=== PATIENT | female | born 2000 | race Caucasian/White ===

== ENCOUNTER 2020-07-24 20:10 | Observation (INO) ==
[2020-07-24 20:49] LABS: Basophils # (auto) 0.03 K/uL (0-0.2); Basophils % (auto) 0.3 %; Eosinophils # (auto) 0.21 K/uL (0-0.5); Eosinophils % (auto) 1.9 %; Hematocrit (blood only) 35.8 % (37-47); Hemoglobin 12.3 g/dL (12.0-16.0); Immature Granulocytes # (auto) 0.02 K/uL (0.00-0.02); Immature Granulocytes % (auto) 0.2 %; Lymphocytes # (auto) 3.24 K/uL (1.2-3.4); Lymphocytes % (auto) 28.6 %; Mean Corpuscular Hemoglobin 30.1 pg (25-34); Mean Corpuscular Hgb Conc 34.4 g/dL (32-36); Mean Corpuscular Volume 87.5 fL (80-100); Mean Platelet Volume 10.1 fL (7.4-10.4); Monocytes # (auto) 0.85 K/uL (0.11-0.59); Monocytes % (auto) 7.5 %; Neutrophils # (auto) 6.97 K/uL (1.4-6.5); Neutrophils % (auto) 61.5 %; Platelet Count 334 K/uL (130-400); RDW Coefficient of Variation 12.6 % (11.5-14.5); RDW Standard Deviation 40.6 fL (36.4-46.3); Red Blood Count 4.09 M/uL (4.2-5.4); White Blood Count 11.32 K/uL (4.8-10.8)
--- NOTE | 2020-07-24 20:52 | Emergency Department Note ---
History of Present Illness General Chief complaint: Abdominal Pain Stated complaint: LOWER RIGHT ABD PAIN Time Seen by Provider: 07/24/20 20:36 Source: patient History of Present Illness Provider complaint: Right lower quadrant abdominal pain Onset (ago): hour(s) Location: abdomen and right Radiation: non-radiation Pain Consistency: + constant Maximum Pain Intensity: 8 Quality: + sharp Exacerbated By: + movement Associated symptoms: no chest pain, no cough, no fever/chills, no nausea/vomiting and no shortness of breath This is a 20-year-old female who presents with right lower quadrant pain starting approximately 9 AM this morning. It was mild at the time but has progressively gotten worse. She describes it as sharp. She rates it at an 8 out of 10 in severity. It is worse when she moves around. No associated fever, vomiting, chest pain, shortness of breath, cough or cold symptoms, abdominal pain, dysuria, diarrhea, constipation or abnormal vaginal discharge or bleeding. She does state that she had a Covid test 2 days ago through the [facility] which was negative. Home Medications Medication Instructions Recorded Confirmed Type aspirin [Aspirin Low-Strength] 81 mg PO DAILY 07/24/20 07/24/20 History sertraline [Zoloft] 25 mg PO DAILY 07/24/20 07/24/20 History sertraline [Zoloft] 100 mg PO DAILY 07/24/20 07/24/20 History spironolactone 50 mg PO DAILY 07/24/20 07/24/20 History trazodone 25 mg PO DAILY 07/24/20 07/24/20 History Allergies Allergy/AdvReac Type Severity Reaction Status Date / Time No Known Allergies Allergy Unverified 07/24/20 20:44 Past Med/Surg History Medical History No pertinent past medical history Surgical History [place] teeth extracted Social History Smoking Status: Never smoker Preferred Language: Ukrainian Feels Safe at Home: Yes Review of Systems See HPI for pertinent positives & negatives. and A total of 10 systems reviewed and were otherwise negative Physical Exam Vital Signs Vital Signs - 24 hr 07/24/20 20:12 07/24/20 22:25 07/24/20 22:46 Temperature 36.4 C L Temperature Source Temporal Artery Scan Pulse Rate 71 Pulse Rate [Left Finger] 94 H 78 Pulse Rhythm [Left Finger] Regular Pulse Strength [Left Finger] Normal Respiratory Rate 16 16 18 Respiratory Effort / Characteristics Non-Labored Respiratory Depth Normal Normal Blood Pressure 126/80 Blood Pressure [Right Arm] 120/80 141/98 H Blood Pressure Mean 95 Blood Pressure Mean [Right Arm] 93 112 Blood Pressure Position [Right Arm] Lying Pulse Oximetry 99 100 98 Oxygen Delivery Method Room Air Room Air Room Air Sepsis New/Unexplained Change in Mental Status N/A Sepsis Action Taken by Nursing No Action Required Constitutional: Vital signs reviewed. Eyes: Pupils are equal round reactive to light. Conjunctiva are noninjected. ENT: Pharynx is clear without erythema or exudate. Mucous membranes are moist. Neck supple without meningeal signs. Respiratory: Clear to auscultation bilaterally. Breath sounds are equal bilaterally. Cardiovascular: Regular rate and rhythm. No rubs or gallops. GI: Soft, nondistended with tenderness in the right lower quadrant. No involuntary guarding. Bowel sounds are present. Musculoskeletal: No peripheral edema. No CVA tenderness. Integumentary: No cyanosis. or jaundice. Neurological: The patient is awake and alert. No focal deficits. Psychiatric: Normal affect. Not anxious appearing. Course Administered Medications Cefoxitin Sodium (Mefoxin) 2,000 mg in 60 mls @ 100 mls/hr IV NOW STA Stop: 07/24/20 22:59 Last Admin: 07/24/20 22:45 Dose: 100 mls/hr Documented by: [id number] Discontinued Medications Ioversol (Ioversol 100ml) 88 ml IV ONCE ONE Stop: 07/24/20 21:28 Last Admin: 07/24/20 21:27 Dose: 88 ml Documented by: [id number] Morphine Sulfate (Morphine Sulfate 4 Mg/Ml 1 Ml Carp\Vial) 4 mg IV NOW STA Stop: 07/24/20 22:11 Last Admin: 07/24/20 22:24 Dose: 4 mg Documented by: [id number] Ondansetron HCl (Ondansetron Inj 2 Mg/Ml 2 Ml Vial) 4 mg IV NOW STA Stop: 07/24/20 22:11 Last Admin: 07/24/20 22:17 Dose: 4 mg Documented by: [id number] Admin: 07/24/20 22:17 Dose: 4 mg Documented by: [id number] Medical Decision Making Differential Diagnosis Acute appendicitis, abscess, perforation, ovarian cyst, ectopic , IBS Medical Records Attestation: I reviewed the patient's medical records. I did perform a limited focused review of portions of the patient's old chart on the electronic medical record. The patient has had no recent pertinent visits to this hospital. Home Medications Current Medication List: was personally reviewed by me Laboratory Data Attestation: I reviewed the patient's lab results. Result diagrams: 07/24/20 20:25 07/24/20 20:25 Lab Results 07/24/20 07/24/20 07/24/20 Range/Units 20:25 20:25 20:25 WBC 11.32 H (4.8-10.8) K/uL RBC 4.09 L (4.2-5.4) M/uL Hgb 12.3 (12.0-16.0) g/dL Hct 35.8 L (37-47) % MCV 87.5 (80-100) fL MCH 30.1 (25-34) pg MCHC 34.4 (32-36) g/dL RDW Std Deviation 40.6 (36.4-46.3) fL RDW Coeff of Kassi 12.6 (11.5-14.5) % Plt Count 334 (130-400) K/uL MPV 10.1 (7.4-10.4) fL Immature Gran % (Auto) 0.2 % Neut % (Auto) 61.5 % Lymph % (Auto) 28.6 % [place] % (Auto) 7.5 % Eos % (Auto) 1.9 % Baso % (Auto) 0.3 % Neut # (Auto) 6.97 H (1.4-6.5) K/uL Lymph # (Auto) 3.24 (1.2-3.4) K/uL [place] # (Auto) 0.85 H (0.11-0.59) K/uL Eos # (Auto) 0.21 (0-0.5) K/uL Baso # (Auto) 0.03 (0-0.2) K/uL Immature Gran # (Auto) 0.02 (0.00-0.02) K/uL Sodium Cancelled 139 Potassium Cancelled 3.6 Chloride Cancelled 107 Carbon Dioxide Cancelled 28 Anion Gap Cancelled 4.0 BUN Cancelled 16 Creatinine Cancelled 0.75 Est Cr Clr Drug Dosing Cancelled 109.6 Est GFR ( Amer) Cancelled 133.0 Est GFR (Non-Af Amer) Cancelled 114.7 BUN/Creatinine Ratio Cancelled 20.8 H Glucose Cancelled 85 Calcium Cancelled 8.8 Total Bilirubin Cancelled 0.5 AST Cancelled 12 L ALT Cancelled 25 Alkaline Phosphatase Cancelled 48 Total Protein Cancelled 8.0 Albumin Cancelled 4.0 Globulin Cancelled 4.0 Albumin/Globulin Ratio Cancelled 1.0 Lipase 106 (73-393) U/L Urine Color Urine Appearance (Clear) Urine pH (4.5-7.5) Ur Specific [place] (1.000-1.030) Urine Protein (Negative) Urine Glucose (UA) (Negative) Urine Ketones (Negative) Urine Blood (Negative) Urine Nitrite (Negative) Urine Bilirubin (Negative) Urine Urobilinogen (Negative) Ur Leukocyte Esterase (Negative) Urine WBC (Auto) (0-5) /hpf Urine RBC (Auto) (0-4) /hpf U Hyaline Cast (Auto) (0-5) /lpf U Epithel Cells (Auto) (0-5) /lpf Urine Bacteria (Auto) (Negative) POC Ur Test (NEG) COVID-19 Eval Order 07/24/20 07/24/20 07/24/20 Range/Units 20:25 20:25 22:28 WBC (4.8-10.8) K/uL RBC (4.2-5.4) M/uL Hgb (12.0-16.0) g/dL Hct (37-47) % MCV (80-100) fL MCH (25-34) pg MCHC (32-36) g/dL RDW Std Deviation (36.4-46.3) fL RDW Coeff of Kassi (11.5-14.5) % Plt Count (130-400) K/uL MPV (7.4-10.4) fL Immature Gran % (Auto) % Neut % (Auto) % Lymph % (Auto) % [place] % (Auto) % Eos % (Auto) % Baso % (Auto) % Neut # (Auto) (1.4-6.5) K/uL Lymph # (Auto) (1.2-3.4) K/uL [place] # (Auto) (0.11-0.59) K/uL Eos # (Auto) (0-0.5) K/uL Baso # (Auto) (0-0.2) K/uL Immature Gran # (Auto) (0.00-0.02) K/uL Sodium Potassium Chloride Carbon Dioxide Anion Gap BUN Creatinine Est Cr Clr Drug Dosing Est GFR ( Amer) Est GFR (Non-Af Amer) BUN/Creatinine Ratio Glucose Calcium Total Bilirubin AST ALT Alkaline Phosphatase Total Protein Albumin Globulin Albumin/Globulin Ratio Lipase (73-393) U/L Urine Color Yellow Urine Appearance Cloudy A (Clear) Urine pH 7.5 (4.5-7.5) Ur Specific [place] 1.018 (1.000-1.030) Urine Protein Negative (Negative) Urine Glucose (UA) Negative (Negative) Urine Ketones Negative (Negative) Urine Blood 2+ H (Negative) Urine Nitrite Negative (Negative) Urine Bilirubin Negative (Negative) Urine Urobilinogen Negative (Negative) Ur Leukocyte Esterase Negative (Negative) Urine WBC (Auto) 0 (0-5) /hpf Urine RBC (Auto) 10-30 H (0-4) /hpf U Hyaline Cast (Auto) 0 (0-5) /lpf U Epithel Cells (Auto) 5-10 H (0-5) /lpf Urine Bacteria (Auto) Negative (Negative) POC Ur Test NEG (NEG) COVID-19 Eval Order [facility] at [facility] Imaging Data Radiologist's Impression: Preliminary Findings Only See Final Report For Complete Findings CT ABDOMEN & PELVIS With Contrast: Appendix not clearly visualized. Obscured by the right ovary and multiple bowel loops within the right lower quadrant. There is trace fat stranding along the inferior aspect of the cecum (image [id number]). Potentially related to physiologic free fluid however cannot exclude early appendicitis. No fluid collection or free air. Unremarkable appearance of the ovaries. A properly positioned IUD. No renal or ureteral stone. Liver, gallbladder, pancreas, and spleen are unremarkable. Radiologist: Ga Salter MD Study ready at 21:43 and initial results transmitted at 22:12 MDM Narrative I did evaluate the patient as noted above. The patient is presenting with right lower quadrant pain. She is tender in the right lower quadrant. I am concerned about acute appendicitis. She was made NPO. She declined any pain or nausea medications. IV access was established. I did order a urine analysis. She has no evidence of infection. There is hematuria but she is currently on her period. I did order and review the patient's blood work as noted in the electronic medical record. Her white blood cell count is slightly elevated at 1.3. Hemoglobin is 12.3 and platelets are within normal limits. Electrolytes and LFTs and lipase are all within normal limits. I did order a CT of the abdomen and pelvis. I did review the images myself as well as the radiology report as described above. The appendix was not clearly visualized. Obscured by the right ovary and multiple bowel loops. There is trace fat stranding along the inferior aspect of the cecum. Potentially related to physiologic free fluid however cannot exclude early appendicitis. No fluid collections or free air. Unremarkable appearance of the ovaries with a properly positioned IUD. I did discuss case with Dr. Li of surgery. He did assess the patient here in the emergency department. He did take the patient to the operating room for appendectomy. I did discuss the results with the patient and she was given morphine and Zofran IV for pain as her pain has now gotten worse. I did order a Covid test. Impression & Plan Appendicitis Discharge Plan Visit Data Chief Complaint: Abdominal Pain Stated Complaint: LOWER RIGHT ABD PAIN ED Provider: Win Navarro Discharge Problem: Appendicitis Patient Disposition: Being Evaluated by Surgeon Forms Stand Alone Forms: [facility] Prescriptions Prescriptions: No Action trazodone 50 mg Tablet 25 mg PO DAILY RF: 0 sertraline [Zoloft] 100 mg Tablet 100 mg PO DAILY RF: 0 aspirin [Aspirin Low-Strength] 81 mg Tablet,Delayed Release (Dr/Ec) 81 mg PO DAILY RF: 0 sertraline [Zoloft] 25 mg Tablet 25 mg PO DAILY RF: 0 spironolactone 50 mg Tablet 50 mg PO DAILY RF: 0 Referrals Referrals: [facility] [Primary Care Provider] -
[2020-07-24 20:57] LABS: Appearance Urine Cloudy (Clear); Bacteria Urine Automated Negative (Negative); Bilirubin Urine Negative (Negative); Blood Urine 2+ (Negative); Cast Urine Automated 0 /lpf (0-5); Color Urine Yellow; Glucose Urine UA Negative (Negative); Ketones Urine Negative (Negative); Leukocyte Esterase Urine Negative (Negative); Nitrite Urine Negative (Negative); Protein Urine Negative (Negative); Specific Gravity Urine 1.018 (1.000-1.030); Urobilinogen Urine Negative (Negative); WBC Urine Automated 0 /hpf (0-5); pH Urine 7.5 (4.5-7.5)
[2020-07-24 21:05] LABS: BUN Creatinine Ratio 20.8 (10-20); Calcium 8.8 mg/dl (8.5-10.1); Creatinine Clr Calc Pharmacy 109.6 ml/min; Est GFR (Non-African American) 114.7; Potassium 3.6 mmol/L (3.5-5.1)
[2020-07-24 21:08] LABS: Bilirubin,Total 0.5 mg/dl (0.2-1)
[2020-07-24] MEDS ORDERED: OPTIRAY 320 100ml IV ONE (21:27)
[2020-07-24] MEDS ORDERED: MoRPHine SULFATE 4 MG/ML 1 ML CARP\\VIAL IV STA (22:10)
[2020-07-24] MEDS: ONDANSETRON INJ 2 MG/ML 2 ML VIAL IV STA (22:17)
[2020-07-24] MEDS ORDERED: cefOXitin 2,000 MG/60 ML BAG IV STA (22:24)
[2020-07-24] MEDS ORDERED: LIDOCAINE/EPINEPHRINE 1% 20 ML VIAL ONE (22:30)
--- NOTE | 2020-07-24 22:33 | History & Physical Report ---
Date of Service July 24, 2020 Assessment & Plan (1) Appendicitis: Due to the patient's clinical presentation and CT scan findings Dr. Hester has elected to take the patient to the operating room for an appendectomy. He has discussed the risks, benefits, and alternatives with the patient. A Covid test has been ordered which is pending. We will river rafting guide antibiotics in the form of cefoxitin. Further recommendations be made based on operative findings as well as patient's clinical course. 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 secondary to abdominal pain. Patient notes that she had a fever yesterday and some cramp- like pain located primarily in the right lower quadrant of her abdomen. She did not have any associated nausea or vomiting. She notes that the pain persisted over the past 24 hours and has not improved. Because of this she presented to [facility] emergency department as noted above. She notes that the pain is improved somewhat with pain medicine that has been administered in the emergency department. She does not note any other palliative factors. She notes that the pain does not radiate and she does not note any other provocative factors. Patient does note that she is currently undergoing her menstrual cycle and does not feel that the pain is related to this. In the emergency department the patient did have imaging and labs that were independently reviewed by myself. CBC revealed an elevated white blood cell count 11.32. Her hemoglobin is noted to be 12.3. Her platelet count was noted to be within normal range. Chemistry profile revealed her sodium, potassium, BUN, and creatinine were all within normal range. Urine test was noted to be negative. Patient does note that she had received both of her Covid vaccines. She also reports having a negative Covid test performed by [facility] approximately [address] scan was performed the emergency department. Although the appendix was not clearly visualized as it was obscured by the right ovary and multiple loops of bowel trace fat stranding was noted along the inferior aspect of the cecum which is felt to potentially be related to an acute appendicitis. At time of my interview the patient was resting comfortably bed she was in no distress. Allergies Allergy/AdvReac Type Severity Reaction Status Date / Time No Known Allergies Allergy Unverified 07/24/20 20:44 Home Medications Medication Instructions Recorded Confirmed Type aspirin [Aspirin Low-Strength] 81 mg PO DAILY 07/24/20 07/24/20 History sertraline [Zoloft] 25 mg PO DAILY 07/24/20 07/24/20 History sertraline [Zoloft] 100 mg PO DAILY 07/24/20 07/24/20 History spironolactone 50 mg PO DAILY 07/24/20 07/24/20 History trazodone 25 mg PO DAILY 07/24/20 07/24/20 History Past Med/Surg History Medical History No pertinent past medical history Surgical History [place] teeth extracted Social History Smoking Status: Never smoker Preferred Language: Dutch Feels Safe at Home: Yes Review of Systems Constitutional: + fever Eyes: no eye pain Ear, Nose, Mouth, Throat: no ear pain Respiratory: no cough and no dyspnea Cardiovascular: no chest pain Gastrointestinal: + abdominal pain; no nausea and no vomiting Genitourinary: no dysuria Musculoskeletal: no back pain Integumentary: no rash Neurologic: no localized weakness Physical Exam Constitutional: well developed and well nourished; no acute distress Eyes: no conjunctival abnormality ENMT: Ears: no hearing impairment Neck: trachea midline Respiratory: normal respiratory effort; no respiratory distress and no labored breathing Cardiovascular: Rate/Rhythm: regular rate and regular rhythm Gastrointestinal (Abdomen): Abdomen is soft and nondistended. Patient had significant tenderness to palpation with both deep and light palpation in the right lower quadrant. She did have some associated rebound tenderness. Musculoskeletal: No calf tenderness Skin: no rashes, warm and dry Neurologic: moves all extremities Psychiatric: A+Ox3, euthymic affect Results & Data Results & Data ([facility]) Vital Signs (Past 12 Hours) Vital Signs Temp Pulse Pulse Resp BP BP Pulse Ox 07/24/20 22:25 94 H 16 120/80 100 07/24/20 20:12 36.4 C L 71 16 126/80 99 Supervising Physician Co-Signing Physician Notes As per Kamaljit Chapa physician resident assistant cna Patient has had approximately 24-hour history periumbilical pain eventually radiated down the right lower quadrant were on exam she has got exquisite tenderness and rebound in that area CAT scan official reading was inconclusive as far as occlusion of the side as it was done with noncontrast stating that some bowel loops cannot see the appendix Clinical exam and history compatible with acute appendicitis include laboratory Recommended patient to undergo a laparoscopic appendectomy possible open risk and complication were explained to the patient was bleeding infection converting to open procedure and she would like to proceed accordingly I also spoke to her mother by phone who was in [place] All question answered permit signed PG Care Time/CCT Total # of Minutes Spent Total Time Spent with Patient: Total time spent is greater than 50% in coordination of care (as documented) at patient's floor/unit and/or counseling patient: Coding Level of Care Code 22339 OBS Care - Level 3 Diagnoses Appendicitis K37
[2020-07-24 23:14] LABS: Influenza A virus by PCR Negative (Neg); Influenza B virus by PCR Negative (Neg); RSV by PCR Negative (Neg); SARS CoV2 RNA(COVID-19) InHosp NEGATIVE (Negative)
[2020-07-24] MEDS ORDERED: HYDROmorphone INJ 2 MG/ML SYR/VIAL IV PRN (23:29)
[2020-07-24] MEDS ORDERED: fentaNYL citrate 100 MCG/2 ML VIAL IV PRN (23:29)
[2020-07-24] MEDS ORDERED: ATROPINE SULFATE 0.1 MG/ML 10ML SYR IV PRN (23:29)
[2020-07-24] MEDS ORDERED: ONDANSETRON INJ 2 MG/ML 2 ML VIAL IV PRN (23:29)
[2020-07-24] MEDS ORDERED: ePHEDrine sulfate 50 MG/ML AMP IV PRN (23:29)
[2020-07-24] MEDS ORDERED: PROMETHAZINE HCL 6.25 MG in SODIUM CHLORIDE 0.9% 50 ML IV PRN (23:29)
--- NOTE | 2020-07-24 23:42 | Anesthesiology Consultation ---
Date of Service July 24, 2020 Assessment & Plan (1) Encounter for pre-operative examination: Chart Review Chart Review: Acceptable Risk for Surgery and Patient NOT seen in Pre Admission Testing Consults Requested none ASA [id number] Proposed Anesthesia Anesthesia Type: General Risk / Benefits Reviewed With: PT / POA / Parent / Guardian, Accepts Plan and Informed Consent Obtained History Surgery Operation Date: 07/24/20 23:00 Proposed Procedures p Laparoscopic Appendectomy - Marcelino Hester MD, FACS Height/Weight Height: 5 ft 3 in Weight: 66.4 kg Allergies Allergy/AdvReac Type Severity Reaction Status Date / Time No Known Allergies Allergy Unverified 07/24/20 20:44 Medications Home Medications Medication Instructions Recorded Confirmed Last Taken aspirin [Aspirin Low-Strength] 81 mg PO DAILY 07/24/20 07/24/20 07/23/20 sertraline [Zoloft] 25 mg PO DAILY 07/24/20 07/24/20 07/23/20 sertraline [Zoloft] 100 mg PO DAILY 07/24/20 07/24/20 07/23/20 spironolactone 50 mg PO DAILY 07/24/20 07/24/20 07/23/20 trazodone 25 mg PO DAILY 07/24/20 07/24/20 07/23/20 NPO Date Last Intake of Fluids: 07/24/20 Time Last Intake of Fluids: 14:40 Date Last Intake of Solids: 07/24/20 Time Last Intake of Solids: 15:00 Past Medical History Medical History No pertinent past medical history Exercise / Class Metabolic Activity II 4-5 Yardwork/Stairs/Walk up hill Past Surgical History Surgical History [place] teeth extracted Past Anesthesia History No Hx of Anesthesia Complications and No Family Hx of Anesthesia Complications History of PONV No Hx of PONV and No Hx of Motion Sickness Social History Smoking Status: Never smoker Physical Exam Vital Signs Last Vital Signs Temp 36.4 C L 07/24/20 20:12 Pulse 78 07/24/20 22:46 Resp 18 07/24/20 22:46 BP 141/98 H 07/24/20 22:46 Pulse Ox 98 07/24/20 22:46 ENMT Mouth: no dentition abnormality Thyromental Distance: > or= 3.5 Finger Breadths Mallampati Class: II Neck normal visual inspection Respiratory normal respiratory effort Auscultation: lungs clear to auscultation bilaterally Cardiovascular Rate/Rhythm: regular rate and regular rhythm Psychiatric Orientation: alert Testing Laboratory Results 07/24/20 20:25 07/24/20 20:25 Urine Color Yellow 07/24/20 20:25 Urine Appearance Cloudy (Clear) A 07/24/20 20:25 Urine pH 7.5 (4.5-7.5) 07/24/20 20:25 Ur Specific [place] 1.018 (1.000-1.030) 07/24/20 20:25 Urine Protein Negative (Negative) 07/24/20 20: Urine Glucose (UA) Negative (Negative) 07/24/20 20: Urine Ketones Negative (Negative) 07/24/20 20:25 Urine Nitrite Negative (Negative) 07/24/20 20:25 Ur Leukocyte Esterase Negative (Negative) 07/24/20 20:25 Urine WBC (Auto) 0 /hpf (0-5) 07/24/20 20:25 Urine RBC (Auto) 10-30 /hpf (0-4) H 07/24/20 20:25 U Hyaline Cast (Auto) 0 /lpf (0-5) 07/24/20 20:25 U Epithel Cells (Auto) 5-10 /lpf (0-5) H 07/24/20 20:25 Urine Bacteria (Auto) Negative (Negative) 07/24/20 20:25 07/24/20 20:25 POC Ur Test NEG
[2020-07-24] MEDS ORDERED: fentaNYL citrate 100 MCG/2 ML VIAL ONE (23:46)
[2020-07-24] MEDS ORDERED: HYDROmorphone INJ 1 MG/ML SYRINGE ONE (23:58)
--- NOTE | 2020-07-25 00:29 | Post Operative Brief Note ---
PG Immediate Post Op with CF Date of Surgery July 25, 2020 Pre & Post Diagnosis Operation Date: 07/24/20 23:00 Pre-Op Diagnosis: Acute Appendicitis Post-Op Diagnosis: Acute Appendicitis I identified the patient and participated in the time-out.: Yes Procedure Operation Date: 07/24/20 23:00 Actual Procedures p Laparoscopic Appendectomy - Marcelino Hseter MD, FACS Surgeon Marcelino Hester MD, FACS Certified Alcohol Counselor b mary ARELLANO Estimated Blood Loss 5 Findings Consistent with Post-Op Diagnosis Specimens Specimen Description: A. Appendix
--- NOTE | 2020-07-25 00:41 | Operative Report ---
PG Post Operative Report Pre & Post Diagnosis Operation Date: 07/24/20 23:00 Pre-Op Diagnosis: Acute Appendicitis Post-Op Diagnosis: Acute Appendicitis I identified the patient and participated in the time-out.: Yes Procedure Operation Date: 07/24/20 23:00 Actual Procedures p Laparoscopic Appendectomy - Marcelino Hester MD, FACS The patient was brought onto the operative room theater supine position general trach anesthesia the abdomen was prepped byline solution properly draped systemic and biotics been given a timeout was had the patient was identified made a small incision supraumbilically sufficient to place a Veress needle followed by CO2 followed by 5 mm trocar point of interest bacteroids identified direct visualization placed a 5 mm right upper quadrant port when initially when looked at the abdomen patient had a very active peristalsis of the small bowel consistent edema in the lateral aspect of the cecum placing a 5 mm right upper quadrant trocar and direct visualization then we were able to elevate the cecum and identify the appendix at its takeoff from the cecum was slightly larger than normal and appeared to be going down towards the pelvic brim at this point I converted the 5 mm supraumbilical port by enlarging the incision dilating the fascial opening using 0 Vicryl suture as a stay suture we placed an 11 mm or 12 mm trocar at this point a 5 mm trocar was placed in the left lower quadrant preemptive local analgesia and direct visualization the camera was placed left lower quadrant using the umbilical and right upper quadrant port we elevated the cecum were able to create a window between the appendix and the mesoappendix was elevated the appendix this time we identified it more did not appear very long slightly larger than normal but there is no fibrinous exudate. The mesoappendix was clipped with 10 mm clips controlled any losing and the appendix was taken off the mesoappendix placed in an Endopouch and taken out intact through local port we irrigated the area copiously there was no bleeding identified in fact the patient had a significant amount of edema at the cecal cap and the lateral wall but the cecum itself did not appear to be inflamed. This point on direct visualization we were able to visualize the trochars making sure there was no bleeding at the camera right upper quadrant port and took out the left lower quadrant trocar than the umbilical port and then last the right upper quad port fascial stitch 0 Vicryl [id number] times 2 and 4-0 Monocryl for the subcu Steri-Strips applied the procedure was tolerated well by the patient estimated blood loss 5 cc addendum Naveed then used one application of the purple MARYBEL freed the appendix at the base of the addendum Kamaljit Cunningham present throughout the case and helped the retraction camera work and wound closure Surgeon Marcelino Hester MD, FACS Micro Photographer flako ARELLANO Estimated Blood Loss 5 Findings Consistent with Post-Op Diagnosis Specimens appendix Description of Procedure merda I attest to the content of the Intraoperative Record and any orders documented therein. Any exceptions are noted below.
[2020-07-25] MEDS ORDERED: DEXAMETHASONE SOD INJ 4 MG/ML VIAL ONE (01:09)
[2020-07-25] MEDS ORDERED: SUCCINYLCHOLINE 100MG/5ML SYR IV ONE (01:09)
[2020-07-25] MEDS ORDERED: NEOSTIGMINE METHYLSULFATE 5 MG/5 ML SYR ONE (01:09)
[2020-07-25] MEDS ORDERED: ONDANSETRON INJ 2 MG/ML 2 ML VIAL ONE ×2 (01:09→01:20)
[2020-07-25] MEDS ORDERED: PROPOFOL IV EMULSION 10 MG/ML 20 ML VIAL IV ONE (01:09)
[2020-07-25] MEDS ORDERED: GLYCOPYRROLATE 0.2 MG/ML VIAL ONE (01:09)
[2020-07-25] MEDS ORDERED: ROCURONIUM BROMIDE 10 MG/ML 5 ML VIAL IV ONE (01:09)
[2020-07-25] MEDS ORDERED: LIDOCAINE HCL 2% 2 ML VIAL/AMP(20MG/ML) INFIL ONE (01:09)
[2020-07-25] MEDS ORDERED: KETOROLAC 30 MG/ML VIAL ONE (01:09)
--- NOTE | 2020-07-25 01:26 | Anesthesiology Progress Note ---
Date of Service July 25, 2020 Anesthesia Post Procedure Vital Signs Vital Signs: Temp Pulse Pulse Resp BP BP Pulse Ox 07/25/20 01:15 36.3 C L 81 15 116/80 94 07/25/20 01:05 36.3 C L 69 15 121/78 96 07/25/20 00:55 36.2 C L 90 18 129/95 100 07/24/20 22:46 78 18 141/98 H 98 07/24/20 22:25 94 H 16 120/80 100 07/24/20 20:12 36.4 C L 71 16 126/80 99 Pain Intensity Right Lower Abdomen: Pain Intensity: 2 Transfer of Care Handoff Completed per policy Notes Mental Status: alert / awake / arousable Patient Amnestic to Procedure: Yes Nausea / Vomiting: adequately controlled Pain: adequately controlled Airway Patency, RR, SpO2: stable & adequate BP & HR: stable & adequate Hydration State: stable & adequate Anesthetic Complications: no major complications apparent
[2020-07-25] MEDS ORDERED: LACTATED RINGER'S 1,000 ML IV SCH (01:54)
[2020-07-25] MEDS ORDERED: ONDANSETRON INJ 2 MG/ML 2 ML VIAL IV PRN (01:54)
[2020-07-25] MEDS ORDERED: MoRPHine SULFATE 2 MG/ML CARP IV PRN (01:54)
[2020-07-25] MEDS: ACETAMINOPHEN 1,000 MG/100 ML VIAL IV SCH ×2 (02:23→09:18)
[2020-07-25] MEDS: oxyCODONE HCL IR 5 MG TAB (IMMEDIATE RELEASE) PO PRN ×2 (04:06→08:46)
--- NOTE | 2020-07-25 08:42 | CT Scan Report ---
ABDOMEN AND PELVIS CT WITH IV CONTRAST CT DOSE: 298.25 mGy.cm HISTORY: Right lower quadrant pain. TECHNIQUE: Multiaxial CT images of the abdomen and pelvis were performed following the use of intrave nous contrast. A dose lowering technique was utilized adhering to the principles of ALARA. COMPARISON STUDY: None. FINDINGS: The lung bases are clear. No pneumoperitoneum. No pneumatosis. No fractures within the visu alized osseous structures. The liver, gallbladder, pancreas, spleen, adrenal glands, and kidneys are unremarkable. No hydronephrosis. The bladder is not well-distended but appears unremarkable. An intra uterine device appears in good position. There is a tampon noted within the vagina. No bowel wall thi ckening or obstruction. The normal appendix is likely visualized within the right lower quadrant on i mages 258 through 263 and is seen adjacent to the right iliac vessels. However, there is inflammatory change at the base of the cecum and adjacent to the right ovary best seen on image 294. This is nons pecific but favors a gynecologic abnormality. An early acute appendicitis is considered less likely b ut not entirely excluded. Consider repeat abdomen and pelvis CT with oral and intravenous contrast if the patient's symptoms progress. IMPRESSION: The normal appendix is likely visualized within the right lower quadrant and is seen adjacent to the right iliac vessels. However, there is inflammatory change at the base of the cecum and adjacent to t he right ovary. This is nonspecific but favors a gynecologic abnormality. An early acute appendicitis is considered less likely but not entirely excluded. Consider repeat abdomen and pelvis CT with oral and intravenous contrast if the patient's symptoms progress. ACT 112: Negative or not required by law. Electronically signed by: Babak Su M.D. 07/25/2020 8:41 AM
[2020-07-25] MEDS ORDERED: SERTRALINE HCL 50 MG TABLET PO SCH (09:00)
[2020-07-25] MEDS ORDERED: SERTRALINE HCL 100 MG TABLET PO SCH (09:00)
[2020-07-25] MEDS ORDERED: ASPIRIN 81 MG ECTAB PO SCH (09:00)
--- NOTE | 2020-07-25 11:09 | Discharge Summary ---
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 Patient notes that she had a fever yesterday and some cramp- like pain located primarily in the right lower quadrant of her abdomen. She did not have any associated nausea or vomiting. She notes that the pain persisted over the past 24 hours and has not improved. Because of this she presented to [facility] emergency department as noted above. She notes that the pain is improved somewhat with pain medicine that has been administered in the emergency department. She does not note any other palliative factors. She notes that the pain does not radiate and she does not note any other provocative factors. Patient does note that she is currently undergoing her menstrual cycle and does not feel that the pain is related to this. In the emergency department the patient did have imaging and labs that were independently reviewed by myself. CBC revealed an elevated white blood cell count 11.32. Her hemoglobin is noted to be 12.3. Her platelet count was noted to be within normal range. Chemistry profile revealed her sodium, potassium, BUN, and creatinine were all within normal range. Urine test was noted to be negative. Patient does note that she had received both of her Covid vaccines. She also reports having a negative Covid test performed by [facility] approximately [address] scan was performed the emergency department. Although the appendix was not clearly visualized as it was obscured by the right ovary and multiple loops of bowel trace fat stranding was noted along the inferior aspect of the cecum which is felt to potentially be related to an acute appendicitis. At time of my interview the patient was resting comfortably bed she was in no distress. Principal Diagnosis Acute appendicitis Discharge Exam Gastrointestinal (Abdomen) Inspection/Auscultation: + abdominal surgical incision (clean, dry); abdomen not distended Percussion/Palpation: abdomen soft Discharge Data Allergies Allergy/AdvReac Type Severity Reaction Status Date / Time No Known Allergies Allergy Unverified 07/24/20 20:44 Consultations 07/24/20 22:25 Consult General Surgery Stat Procedures Performed Operation Date: 07/24/20 23:00 Actual Procedures p Laparoscopic Appendectomy - Marcelino Hester MD, FACS Ordered Studies 07/24/20 20:40 CT abd pelvis IV con only Stat Hospital Course (1) Appendicitis: 20 y/o female presented to the ER with abdominal pain. White count was 11,[address] questioned early acute appendicitis. She was taken to the operating room for laparoscopic appendectomy and transferred to the surgical floor for overnight observation. In the morning she was able to advance diet and tolerate oral analgesics. She was stable for discharge home. Total Time Total Time Spent Total Time Spent (In Minutes): 15 Discharge Plan Discharge Items Patient Disposition: Home - Self-Care Reason For Visit: APPY Discharge Diagnosis: appendicitis Activity: As commented below Lifting: No more than 10 pounds Bathing Comment: ok to shower Driving/Machine Use: Resume 3 days after discharge Non-emergency contact: Surgeon Call non-emergency contact if: you have any medication questions, your pain is not controlled, you have a fever, your temperature is above 101.5, your wound has increased redness and your wound has increased drainage Follow-up/Referrals: Marcelino Hester MD, FACS [Surgeon] - 08/01/20 11:00 am (Call the office to make an ppt in 1 week) [facility] [Primary Care Provider] - Diet: Regular Addtl Attending Provider Instructions: You can take ibuprofen up to 600 mg every 6 hours as needed between or instead of Percocet Pending Studies at Discharge: No Stand-Alone Forms: My [facility], Opioid Pain Management, Work/School Release (Inpt), Smoking Cessation Medications and DC Order Prescriptions: New oxycodone-acetaminophen [Percocet] 5-325 mg tablet 1 - 2 tab PO Q4H PRN (Reason: pain, initial therapy, max 6 daily) Qty: 15 RF: 0 Continued trazodone 50 mg Tablet 25 mg PO DAILY RF: 0 sertraline [Zoloft] 100 mg Tablet 100 mg PO DAILY RF: 0 aspirin 81 mg Tablet,Delayed Release (Dr/Ec) 81 mg PO DAILY RF: 0 sertraline [Zoloft] 25 mg Tablet 25 mg PO DAILY RF: 0 spironolactone 50 mg Tablet 50 mg PO DAILY RF: 0 Discharge Orders: Discharge Order (Routine); Ordered 07/25/20 Ordered By: Yahir Goodrich Admission Data Admit Date/Time: 07/25/20 01:42 Attending Provider: Marcelino Hester Admit Provider: Marcelino Hester Primary Care Provider: [place] Other Providers: Marcelino Hester Other Interventions: Discharge Summary Assessment (RN) Last Done: 07/25/20 10:59 Coding Level of Care Code D/C Day Management <30 mins Diagnoses Appendicitis K35.80 Acute appendicitis type: unspecified acute appendicitis type Appendicitis type: acute appendicitis
[2020-07-25] MEDS ORDERED: traZODone HCL 50 MG TAB PO SCH (21:00)
== END 2020-07-25 11:19 | disposition home or self-care (01) ==
LOC: ED 20:10 → 3W 23:35 → OR 23:35